=== PATIENT | female | born 1975 | race Caucasian/White ===

== ENCOUNTER 2017-08-27 10:37 | Day surgery (SDC) | payer OTHER, SELFPAY ==
[2017-08-27] VITALS (7 sets, daily range): BP systolic 115–139; BP diastolic 68–80; PULSE 50–70; RESP 16; TEMP 36.8–37.6; O2SAT 99–100; BMI 26.2
--- NOTE | 2017-08-27 | FALS_PTH ---
PATIENT: SAROJ CHAMBERS LOC: [facility] – [place] U#:[id number] AGE/SX: 42/F ROOM: RE08/27/[address]: Dr. Archana Montanez, MDDOB: 1975 BED: DIS: 08/27/2017 SPEC #: [id number] RECD: 08/28/17 14:29 STATUS: WALTER REMariusz #: [id number] MONIQUE: 08/27/17 00:[address]: Archana Montanez DEPT: SURGICAL PATHOLOGY RECD BY: Jc Lafleur ENTERED: 08/28/17 14:29 SP TYPE: FALL TUBES OTHR DR: Dr. Joe Mcguire, DO Tissues: Fallopian tube Procedures: Surgery Specimen Level II HEADER OPERATION: Laparoscopic salpingectomy PRE-OP DIAGNOSIS: Sterilization request TISSUE SUBMITTED: Bilateral fallopian tubes MICROSCOPIC DIAGNOSIS Bilateral fallopian tubes: Bilateral fallopian tubes including fimbrial ends, no pathologic diagnosis. SJ:brad 08/31/17 MICROSCOPIC DESCRIPTION Slides are reviewed. GROSS DESCRIPTION Received is one container labeled with the patient's name and designated fallopian tubes. The specimen consists of bilateral fallopian tubes including fimbrial ends measuring 6 cm in length and 0.5 cm in diameter and 4 cm in length and 0.67 cm in diameter. Sections do not reveal any mass lesion. The fallopian tubes are not identified as right or left. Pin Sorter And Bagger sections are submitted in two cassettes with each cassette containing one fallopian tube. / ADRIAN:brad 08/28/17 TC:4 CPT: 66279 x2
[2017-08-27 10:59] LABS: Internal QC Validated? YES +Cl - CLEAR BKGD; Pregnancy, Urine Negative Negative
[2017-08-27 11:08] LABS: Hematocrit 41.6 % (37-47); Hemoglobin 13.4 g/dl (12.0-15.0); Mean Corp Hgb Conc 32.2 g/gl (32-36); Mean Corpuscular Hgb 30.6 pg (27.0-32.0); Mean Platelet Vol. 9.9 fl (6.2-12.0); Platelet Count 208 K/mm3 (150-450); RBC Distribution Width CV 12.6 % (11.6-14.6); RBC Distribution Width SD 43.5 fl (35.1-43.9); Red Blood Count 4.38 M/mm3 (4.2-5.4); White Blood Count 7.5 K/mm3 (4.4-11.0)
[2017-08-27 11:09] LABS: Scan Indicated on CBC? Y/N NO
--- NOTE | 2017-08-27 13:03 | OP.PCM_ITS ---
Operative Report Date of Procedure: 08/27/17 Surgeon: Dr. Archana Montanez Pilot Can Router: none Preoperative diagnosis: Sterilization request Procedure performed: Laparoscopic bilateral salpingectomy Postoperative diagnosis: Sterilization request complications:None Estimated blood loss: 5 cc Drains: none complications none Specimens collected: Bilateral tubes Findings: Normal tubes and ovaries bilaterally uterus sounded to approximately 7 cm. Operative note: After informed consent was obtained patient was taken to the operating room she was placed in supine position she was given anesthesia. [facility] and she was prepped and draped in normal sterile fashion. Bladder was drained prior to the start of procedure approximately 100 cc of clear yellow urine was expelled. At this time attention was turned to the vaginal portion where weighted speculum placed at posterior fornix vagina single-tooth tenaculum was used to gently grasp the internal the cervix. uterus was gently sounded to approximately 7cm. Uterine manipulator was placed without difficulty. Legs then placed in parallel with the abdomen the tenaculum and the weighted speculum were removed. 2 towel clamps were placed superior to umbilicus. After Marcaine was injected superior to umbilicus a small incision was made and a 5 mm trocar was placed under direct visualization. CO2 gas was used to insufflate the intra-abdominal cavity. Upon inspection no gross abnormalities uterus tubes and ovaries appeared to be normal. At this time then the LLQ port was placed again Marcaine was injected small incision was made a knife and the 5 mm trocar was placed. Alligator clamp was then placed suprapubically. At this time then tubes were traced back to the fimbriated ends. Ligasure was used to coagulate and ligate along mesosalpinx bilaterally until tubes removed completely. Good hemostasis was appreciated. At this time procedure was deemed complete successful. The gas was desufflated on from the intra-abdominal cavity. The trochars were removed. Skin was closed using 4-0 Monocryl in a subcutaneous fashion. Dermabond glue was placed. Instrument lap and needle counts were correct ?2. The uterine manipulator was removed. Vaginal sweep was performed it was negative. There were no complications anticipated normal postoperative course for this patient.
--- NOTE | 2017-08-27 13:16 | PCM.DC.TUB ---
Discharge Diet: No Restrictions, - - Increase fluid intake for 48 hours. Discharge Activity: Return to Normal Activity, May Drive - when you are no longer taking narcotic pain medications., May Shower, May Take a Tub Bath - in 7 days., - - Ambulate often the next week after surgery. May resume sexual activity in: 2 weeks Additional Activity Instructions:: Nothing in the vagina for the next 5 days. Call your doctor if your incision/area has: Continuous Slow Oozing, Sudden Increased Bleeding, Increased Pain/ Swelling, Increased Redness, Foul Smelling Discharge, Swelling at the incision site Call your doctor if you observe: Fever of 101 or Higher Cleanse incision/area with: - - do not pick off skin glue- you may shower, let soap and water run over incision sites and dab dry. Allergies/Adverse Reactions: Allergies No Known Allergies Allergy (Verified 08/20/17 15:10) Medications to take at Discharge Albuterol Inhaler [Ventolin Hfa (SP)] 1 - 2 puff INHALATION Q4H PRN PRN 08/20/17 Cetirizine HCl [Allergy Relief] 10 mg PO DAILY 08/20/17 Norgestimate-Ethinyl Estradiol [Yancey-Linyah 28 Tablet] 1 each PO 08/20/17 Primary Care Physician: Joe Mcguire DO [Primary Care Provider] - Test Results: Test results from this visit will be discussed in further detail at your follow-up appointment, if applicable.
[2017-08-27] MEDS: Bupivacaine Mpf 0.5% 30 ML VIAL (13:37)
== END 2017-08-27 15:58 | disposition home or self-care (01) ==
LOC: SDC 10:41 → AC 10:42
PROVIDERS: Family Provider Student in an Organized Health Care Education/Training Program; PCP Student in an Organized Health Care Education/Training Program; Visit Provider Obstetrics & Gynecology
PROC: (CPT 58661; principal; 2017-08-27 11:55)
DX: Z30.2 Encounter for sterilization (principal); J45.909 Unspecified asthma, uncomplicated; Z79.51 Long term (current) use of inhaled steroids; Z79.891 Long term (current) use of opiate analgesic; Z79.899 Other long term (current) drug therapy
CPT/HCPCS: 58661; 81025; 85027; 88302; J7120